=== PATIENT | male | born 1960 | race Caucasian/White ===

== ENCOUNTER 2022-07-31 07:45 | Outpatient (CLI) | payer MEDICAID, SELFPAY ==
--- NOTE | 2022-07-31 07:58 | CT_ITS ---
WS: [id number] LDCT LUNG CANCER SCREENING HISTORY: HX OF TOBACCO USE/NICOTINE Dependence, cigarettes TECHNIQUE: Axial imaging performed from the apices to 1 cm below the costophrenic angles. Coronal and sagittal reformats are submitted with axial MIP series. All CT scans at [facility] use at least one of these dose optimization techniques: automated exposure control; mA and/or kV adjustment per patient size (includes targeted exams where dose is matched to clinical indication); or iterativ e reconstruction. DLP: 55.01 mGy.cm DIvol: Mean CTDIvol: 1.00 (mGy) COMPARISON: None available. Diagnostic quality: Satisfactory Lungs: There is emphysema. 4 mm noncalcified nodule RIGHT upper lobe. No additional nodule or mass. N o endobronchial lesions. Heart: Normal size heart with no pericardial effusion.. Other findings: Moderate atherosclerosis aorta. Normal size aorta and pulmonary artery. No adenopathy . Negative adrenal glands. Hepatic granuloma. Mild thoracic spondylosis. CT/CT lung screening [id number] IMPRESSION: LUNG-RADS: 3-Probably Benign FOLLOW UP: 6 Month LDCT OTHER FINDINGS (S MODIFIER): None.
== END 2022-07-31 07:46 | disposition home or self-care (01) ==
PROVIDERS: PCP Nurse Practitioner Family; Visit Provider Nurse Practitioner Family
DX: Z12.2 Encounter for screening for malignant neoplasm of respiratory organs (principal); F17.210 Nicotine dependence, cigarettes, uncomplicated
CPT/HCPCS: 71271

== ENCOUNTER 2023-03-02 08:55 | Outpatient (CLI) | payer MEDICAID, SELFPAY ==
--- NOTE | 2023-03-02 09:00 | CT_ITS ---
WS: [id number] LDCT LUNG CANCER SCREENING TECHNIQUE: Noncontrast CT of the chest with coronal and sagittal reformatted images. CLINICAL INFORMATION: HX OF TOBACCO USE COMPARISON: CT 07/31/2022 DLP: 66.79 mGy.cm DIvol: Mean CTDIvol: 1.20 (mGy) All CT scans at [facility] use at least one of these dose optimization techniques: automat ed exposure control; mA and/or kV adjustment per patient size (includes targeted exams where dose is matched to clinical indication); or iterative reconstruction. FINDINGS:Stable 4 mm nodule RIGHT upper lobe. Mild chronic emphysematous changes. No other suspicious pulmonary parenchymal normalities Aortic calcification. Coronary calcification. No mediastinal or hilar lymphadenopathy. No axillary ly mphadenopathy. Normal RIGHT adrenal gland. Tiny LEFT adrenal adenoma. Normal GE junction. . IMPRESSION: CT/CT lung screening [id number] LUNG-RADS: 2-Benign Appearance or Behavior FOLLOW UP: 12 Month: Continue annual screening with LDCT
== END 2023-03-02 08:56 | disposition home or self-care (01) ==
LOC: RAD 08:56
PROVIDERS: PCP Nurse Practitioner Family; Visit Provider Nurse Practitioner Family
DX: Z87.891 Personal history of nicotine dependence (principal); R91.1 Solitary pulmonary nodule; Z12.2 Encounter for screening for malignant neoplasm of respiratory organs
CPT/HCPCS: 71271

== ENCOUNTER 2023-10-10 07:36 | Day surgery (SDC) | payer MEDICAID, SELFPAY ==
[2023-10-10 07:53] VITALS: BP 128/85; PULSE 73; RESP 18; TEMP 36.6; O2SAT 100
--- NOTE | 2023-10-10 07:59 | ANES.PREANE2 ---
Pre-Anesthetic Assessment Height/Weight: Height 1.68 m Weight 71.668 kg Temp Pulse Resp BP Pulse Ox O2 Del Method 97.9 F 73 18 128/85 100 Room Air 10/10/23 07:53 10/10/23 07:53 10/10/23 07:53 10/10/23 07:53 10/10/23 07:53 10/10/23 07:53 Operation Date: 10/10/23 08:45 Proposed Procedures p Colonoscopy 89821, G0121, Z12.11(Not Applicable) - Erik Steen DO Familial anesthetic complications: NOne Was Beta Huber taken within 24 hours: N/A Was Clonidine taken within 24 hours: N/A Last intake: Intake Last Liquid Date 10/09/23 Last Liquid Time 21:00 Last Solid Date 10/08/23 Last Solid Time 20:00 Social Tobacco and No alcohol Exam alert, oriented x 3, clear to auscultation bilaterally and regular rate & rhythm Airway Mallampati: Class I Dentition: false Metabolic Diabetes Mellitus and Hyperlipidemia Anesthetic Plan ASA status: 2 Anesthesia: MAC Risk of > 500 ml blood loss (7ml/kg in children): No Medications/Allergies Home Medications Medication Instructions Recorded Confirmed Last Taken Type clopidogrel 75 mg tablet 75 mg PO DAILY 02/02/23 10/08/23 10/05/23 History diabetic shoes with 3 inserts #1 ea 02/02/23 08/06/23 Unknown Rx fluticasone 100 mcg-salmeterol 50 1 inh inhalation DAILY 02/02/23 10/08/23 10/10/23 History mcg/dose blistr powdr for inhalation (Advair Diskus) glipizide 10 mg tablet 10 mg PO DAILY 02/02/23 10/08/23 10/09/23 History liraglutide 0.6 mg/0.1 mL (18 mg/3 1.8 mg SUBCUT DAILY 02/02/23 10/08/23 10/09/23 History mL) subcutaneous pen injector (Victoza 2-Kleber) atorvastatin 20 mg tablet 20 mg PO DAILY 08/06/23 10/08/23 10/09/23 History insulin glargine 100 unit/mL (3 10 unit SUBCUT QPM 08/06/23 10/08/23 10/09/23 History mL) subcutaneous pen (Lantus Solostar U-100 Insulin) losartan 50 mg tablet 50 mg PO DAILY 08/06/23 10/08/23 10/09/23 History metformin 1,000 mg tablet 1,000 mg PO BID 08/06/23 10/08/23 10/09/23 History pen needle, diabetic 31 gauge x #1,200 ea 08/06/23 08/06/23 Unknown History 05/04 (TechLITE Pen Needle) Allergies Allergy/AdvReac Type Severity Reaction Status Date / Time pet dander Allergy unknown Uncoded 10/08/23 09:08 Data Anesthesia Cardiac Studies: No Data to Display
[2023-10-10] MEDS: sodium chloride 0.9% 1,000 ML 30 ML IV (08:04)
[2023-10-10 08:18] LABS: Glucose Point of Care 179 mg/dL (70-110)
--- NOTE | 2023-10-10 08:46 | PM.HP ---
Providers/Chief Complaint Primary Care Provider: Elysia Boucher NP Chief Complaint: Z12.11 History of Present Illness Roddy Romero is a 63 year old male Review of Systems General: Reports: 10 or more systems reviewed and unremarkable except in HPI and below Medications/Allergies Home Medications Medication Instructions Recorded Confirmed Last Taken Type clopidogrel 75 mg tablet 75 mg PO DAILY 02/02/23 10/08/23 10/05/23 History diabetic shoes with 3 inserts #1 ea 02/02/23 08/06/23 Unknown Rx fluticasone 100 mcg-salmeterol 50 1 inh inhalation DAILY 02/02/23 10/08/23 10/10/23 History mcg/dose blistr powdr for inhalation (Advair Diskus) glipizide 10 mg tablet 10 mg PO DAILY 02/02/23 10/08/23 10/09/23 History liraglutide 0.6 mg/0.1 mL (18 mg/3 1.8 mg SUBCUT DAILY 02/02/23 10/08/23 10/09/23 History mL) subcutaneous pen injector (Victoza 2-Kleber) atorvastatin 20 mg tablet 20 mg PO DAILY 08/06/23 10/08/23 10/09/23 History insulin glargine 100 unit/mL (3 10 unit SUBCUT QPM 08/06/23 10/08/23 10/09/23 History mL) subcutaneous pen (Lantus Solostar U-100 Insulin) losartan 50 mg tablet 50 mg PO DAILY 08/06/23 10/08/23 10/09/23 History metformin 1,000 mg tablet 1,000 mg PO BID 08/06/23 10/08/23 10/09/23 History pen needle, diabetic 31 gauge x #1,200 08/06/23 08/06/23 Unknown History 05/04 (TechLITE Pen Needle) Allergies Allergy/AdvReac Type Severity Reaction Status Date / Time pet dander Allergy unknown Uncoded 10/08/23 09:08 Vitals/I&O/Wt Last Vital Signs Temp 97.9 F 10/10/23 07:53 Pulse 73 10/10/23 07:53 Resp 18 10/10/23 07:53 BP 128/85 10/10/23 07:53 Pulse Ox 100 10/10/23 07:53 O2 Del Method Room Air 10/10/23 07:53 Weight last 48 hrs Weight 158 lb A&P Assessment and plan (1) Colon cancer screening: Plan Colonoscopy Attestations Medical Necessity Statement*: Home Coding Level of Care Code Acute Code for Chg Fwd Diagnoses Colon cancer screening Z12.11
[2023-10-10 09:07] VITALS: BP 99/63; PULSE 61; RESP 14; TEMP 36.1; O2SAT 99
[2023-10-10 09:20] VITALS: BP 93/58; PULSE 66; RESP 18; O2SAT 98
[2023-10-10 09:30] VITALS: BP 120/71; PULSE 72; RESP 18; O2SAT 98
--- NOTE | 2023-10-10 09:50 | ANE.PACU2 ---
Inpatient post-anesthesia follow up: Airway intact: Yes Vital signs: Temperature 97.0 F Pulse Rate 72 Respiratory Rate 18 Blood Pressure 120/71 Pulse Oximetry 98 Oxygen Delivery Me thod Room Air Oxygen Flow Rate Fraction of Inspir ed Oxygen Hydration adequate: Yes Nausea and vomiting: No Pain level: 1 Mental status: Baseline
== END 2023-10-10 09:50 | disposition home or self-care (01) ==
PROVIDERS: PCP Nurse Practitioner Family; Visit Provider Surgery
PROC: 0DJD8ZZ Inspection of Lower Intestinal Tract, Via Natural or Artificial Opening Endoscopic (ICD-10-PCS; CPT 45378; principal; 2023-10-10 08:45)
DX: Z12.11 Encounter for screening for malignant neoplasm of colon (principal); E11.9 Type 2 diabetes mellitus without complications; E78.5 Hyperlipidemia, unspecified; Z79.4 Long term (current) use of insulin
CPT/HCPCS: 36416; 45378; 82962; J2704; J7030

== ENCOUNTER 2024-03-07 09:37 | Outpatient (CLI) | payer MEDICAID, SELFPAY ==
--- NOTE | 2024-03-07 09:45 | CT_ITS ---
WS: [id number] LDCT LUNG CANCER SCREENING TECHNIQUE: Noncontrast CT of the chest with coronal and sagittal reformatted images. CLINICAL INFORMATION: NICOTINE DEPENDENCE COMPARISON: CT 03/02/2023 DLP: 64.41 mGy.cm DIvol: Mean CTDIvol: 1.20 (mGy) All CT scans at [facility] use at least one of these dose optimization techniques: automat ed exposure control; mA and/or kV adjustment per patient size (includes targeted exams where dose is matched to clinical indication); or iterative reconstruction. FINDINGS: Stable 4 mm nodule RIGHT upper lobe. A few hazy opacities in the LEFT lower lobe and lingul a. Few small 3 mm nodules LEFT lower lobe new from previous may be inflammatory Slight tree-in-bud no dularity in the lower lobes. Moderate chronic emphysematous changes. Aortic calcification. Coronary calcification. No mediastinal or hilar lymphadenopathy. No axillary ly mphadenopathy. Normal RIGHT adrenal gland. Tiny LEFT adrenal adenoma. Normal GE junction. CT/CT lung screening [id number] IMPRESSION: LUNG-RADS: 2-Benign Appearance or Behavior FOLLOW UP: 12 Month: Continue annual screening with LDCT
== END 2024-03-07 09:38 | disposition home or self-care (01) ==
PROVIDERS: PCP Nurse Practitioner Family; Visit Provider Nurse Practitioner Family
DX: Z12.2 Encounter for screening for malignant neoplasm of respiratory organs (principal); F17.210 Nicotine dependence, cigarettes, uncomplicated; R91.8 Other nonspecific abnormal finding of lung field; I70.0 Atherosclerosis of aorta; I25.10 Atherosclerotic heart disease of native coronary artery without angina pectoris
CPT/HCPCS: 71271

== ENCOUNTER 2024-06-06 09:55 | Outpatient (CLI) | payer MEDICAID, SELFPAY ==
[2024-06-06 10:36] LABS: Estmated Average Glucose 189; Hemoglobin A1C 8.2 % (4.0-6.0)
[2024-06-06 10:43] LABS: Alanine Aminotransferase 20 U/L (0-41); Albumin Level 4.5 g/dL (3.5-5.2); Alkaline Phosphatase 90 U/L (40-130); Anion Gap 15.8 (5-19); Aspartate Amino Transferase 16 U/L (0-40); Blood Urea Nitrogen 15 mg/dL (8-23); Calcium 9.5 mg/dL (8.5-10.5); Carbon Dioxide 21 mmol/L (22-29); Chloride 107 mmol/L (98-107); Chol HDL Ratio 3.39 mg/dL (1.0-5.00); Cholesterol 105 mg/dL (0-200); Globulin 3.7 g/dL (1.3-4.6); Glomerular Filtration Rate 85.5 mL/min (90-130); Glucose 206 mg/dL (65-115); HDL Cholesterol 31 mg/dL (60-100); LDL Cholesterol Calculated 54 mg/dL (50-129); LDL HDL Ratio 1.74 RATIO (0.00-3.22); Osmolality Calculated 295 mOsm/kg (285-295); Potassium 4.8 mmol/L (3.5-5.1); Sodium 139 mmol/L (136-145); Total Bilirubin 0.2 mg/dL (0.15-1.2); Total Protein 8.2 g/dL (6.6-8.7); Triglycerides 100 mg/dL (0-150)
[2024-06-06 10:53] LABS: Creatinine Urine, Random 106 mg/dL (39-259); Microalbumin Random Urine 6 ug/dL (0-20)
[2024-06-06 10:56] LABS: Microalbum Creatinine Ratio Ur 57 mg/dL (0-20)
== END 2024-06-06 09:56 | disposition home or self-care (01) ==
PROVIDERS: PCP Nurse Practitioner Family; Visit Provider Internal Medicine
DX: L60.3 Nail dystrophy (principal); E11.9 Type 2 diabetes mellitus without complications; G62.9 Polyneuropathy, unspecified
CPT/HCPCS: 36415; 80053; 80061; 82044; 83036

== ENCOUNTER 2025-01-02 09:56 | Outpatient (CLI) | payer MEDICAID, SELFPAY ==
[2025-01-02 10:39] LABS: Creatinine Urine, Random 136 mg/dL (39-259); Microalbum Creatinine Ratio Ur 118 mg/dL (0-20)
[2025-01-02 10:49] LABS: Estmated Average Glucose 229; Hemoglobin A1C 9.6 % (4.0-6.0)
[2025-01-02 11:06] LABS: Alanine Aminotransferase 21 U/L (0-41); Albumin Level 4.1 g/dL (3.5-5.2); Alkaline Phosphatase 102 U/L (40-130); Anion Gap 17.4 (5-19); Aspartate Amino Transferase 15 U/L (0-40); Blood Urea Nitrogen 19 mg/dL (8-23); Calcium 9.2 mg/dL (8.5-10.5); Carbon Dioxide 19 mmol/L (22-29); Chloride 108 mmol/L (98-107); Cholesterol 110 mg/dL (0-200); Globulin 3.9 g/dL (1.3-4.6); Glucose 170 mg/dL (65-115); HDL Cholesterol 32 mg/dL (60-100); Osmolality Calculated 296 mOsm/kg (285-295); Potassium 4.4 mmol/L (3.5-5.1); Sodium 140 mmol/L (136-145); Total Protein 8.0 g/dL (6.6-8.7); Triglycerides 104 mg/dL (0-150)
== END 2025-01-02 09:57 | disposition home or self-care (01) ==
LOC: LAB 09:58
PROVIDERS: PCP Nurse Practitioner Family; Visit Provider Internal Medicine
DX: E11.9 Type 2 diabetes mellitus without complications (principal)
CPT/HCPCS: 80053; 80061; 82044; 83036; 84681; 86337; 86341